=== PATIENT | male | born 1960 | race Caucasian/White ===

== ENCOUNTER 2019-08-18 20:33 | Inpatient (IN) | payer MEDICAID, OTHER ==
[~2019-08-18] VITALS: Ht 167.6 cm; Wt 75.3 kg
[2019-08-18 20:00] VITALS: BP 154/90
--- NOTE | 2019-08-18 20:59 | NUR ---
FSBS:[id number]
--- NOTE | 2019-08-18 21:00 | NUR ---
BIB FAMILY FOR C/O AMS AND HIGH BLOOD SUGAR OF 200s . PER SON HE HAD AN EPISODE OF NON- SENSE SLURRED SPEECH TODAY. PT CURRENTLY ALERT AND OX2. DOES NOT REMEMBER THE EXACT DAY OR DATE TODAY. NO FACIAL DROOP OR SLURRED SPEECH NOTED AT THIS TIME. - H/A. PT IS PLACED ON A MONITOR. WILL CONT TO [facility] AND F/W W/ 'S ORDER.
--- NOTE | 2019-08-18 21:15 | NUR ---
LEFT FOR CT
[2019-08-18 21:16] LABS: BASOPHILS % (AUTO) 0.3 % (0.0-2.0); EOSINOPHILS % (AUTO) 0.3 % (0.0-6.0); HEMATOCRIT 47 % (39-51); HEMOGLOBIN 15.9 g/dL (13.5-17.5); LYMPHOCYTES # (AUTO) 0.7 /CMM (0.8-4.8); LYMPHOCYTES % (AUTO) 9.3 % (20.0-44.0); MEAN CORPUSCULAR HGB CONC 34 g/dl (31.0-36.0); MEAN CORPUSCULAR VOLUME 88 fL (80-96); MONOCYTES # (AUTO) 0.4 /CMM (0.1-1.30); MONOCYTES % (AUTO) 4.8 % (2.0-12.0); NEUTROPHILS # (AUTO) 6.4 /CMM (1.8-8.9); NEUTROPHILS % (AUTO) 85.3 % (43.0-81.0); PLATELET COUNT (AUTO) 182 /CMM (150-450); RED BLOOD CELL COUNT(AUTO) 5.28 MIL/uL (4.5-6.0); WHITE BLOOD COUNT (AUTO) 7.5 K/uL (4.3-11.0)
[2019-08-18] MEDS ORDERED: LABETALOL HCL IV 100MG VIAL ONE (21:18)
[2019-08-18 21:30] LABS: CALCIUM, SERUM 9.5 mg/dL (8.5-10.1); CARBON DIOXIDE 28 mmol/L (21-32); CHLORIDE 100 mmol/L (98-107); GLUCOSE 228 mg/dL (74-106); POTASSIUM 3.5 mmol/L (3.5-5.1); SODIUM SERUM 135 mmol/L (136-145); UREA NITROGEN, BLOOD 14 mg/dL (7-18)
[2019-08-18] MEDS ORDERED: LABETALOL 20 MG/4 ML VIAL IV ONE (21:30)
[2019-08-18 21:36] LABS: ALANINE AMINOTRANSFERASE 57 U/L (12-78); ALBUMIN 4.1 g/dL (3.4-5.0); ALKALINE PHOSPHATASE 88 U/L (46-116); ASPARTATE AMINOTRANSFERASE 32 U/L (15-37); BILIRUBIN,DIRECT 0.2 mg/dL (0.0-0.2); TOTAL PROTEIN, SERUM 7.4 g/dL (6.4-8.2)
--- NOTE | 2019-08-18 21:47 | NUR ---
CALLED NURSING SUP FOR TELE BED
--- NOTE | 2019-08-18 21:48 | NUR ---
CALLED [facility], PAGED BASHIR
[2019-08-18] MEDS ORDERED: ASPIRIN 325 MG TABLET PO ONE (22:00)
[2019-08-18 22:08] LABS: CHOLESTEROL 253 mg/dL (<200); HDL CHOLESTEROL 55 mg/dL (40-60); LDL 186 mg/dL (0-99); TRIGLYCERIDES 170 mg/dL (30-150)
[2019-08-18] MEDS ORDERED: ASPIRIN 325 MG TABLET ONE (22:10)
--- NOTE | 2019-08-18 22:14 | NUR ---
DR CAMEJO AT THE BED SIDE
--- NOTE | 2019-08-18 22:18 | NUR ---
REPORT GIVEN TO IV.
--- NOTE | 2019-08-18 22:21 | NUR ---
PT WAS S/B HIS PCP AND WAS PRESCRIBED GEMFIMBROZIL, METFORMIN AND GLIPIZIDE TO START IN AM. DR CAMEJO MADE AWARE ABOUT THE NEW MEDS . PER MD NO NEED TO REPORT THE HOME MEDS .
[2019-08-18] MEDS ORDERED: DEXTROSE 50%-WATER 50 ML DISP.SYRIN IV PRN (23:00)
--- NOTE | 2019-08-18 23:02 | NUR ---
PT WAS TRANSFERRED TO THE THIRD FLOOR IN STABLE CONDITION, UNDER ACLS
--- NOTE | 2019-08-18 23:20 | NUR ---
RN NOTES ADMITTED PATIENT TRANSPORTED FROM ER VIA WHEELCHAIR, PATIENT ABLE TO WALK WITH ASSISTANCE FROM WHEEL CHAIR TO HIS ASSIGNED BED. ALL NEEDS ANTICIPATED, IV ACCESS INTACT AND PATENT, BRITISH SPEAKING. ATTENDED BY A BRITISH SPEAKING CT TECHNICIANCONNOR. INITIAL ASSESSMENT ADMISSION INITIATED, KEEP CLEAN WARM DRY AND COMFORTABLE. ORIENTED TO UNIT AND THE USE OF CALL LIGHT. SEEN BY DR. CAMEJO. WILL CONTINUE TO MONITOR ACCORDINGLY.
[2019-08-19] VITALS (7 sets, daily range): BP systolic 130–161; BP diastolic 88–98
[2019-08-19] MEDS: BLOOD SUGAR DIAGNOSTIC 1 EACH STRIP IN SCH ×2 (00:33→06:32)
[2019-08-19] MEDS: *INSULIN REGULAR(HUMULIN R)HUM 100 UNIT/ML VIAL SQ PRN ×2 (00:56→21:42)
[2019-08-19] MEDS: INSULIN REGULAR, HUMAN 100 UNIT/ML 3 ML VIAL SQ PRN ×3 (06:08→17:15)
[2019-08-19 06:26] LABS: BASOPHILS % (AUTO) 0.2 % (0.0-2.0); HEMATOCRIT 45 % (39-51); HEMOGLOBIN 15.6 g/dL (13.5-17.5); LYMPHOCYTES # (AUTO) 1.2 /CMM (0.8-4.8); LYMPHOCYTES % (AUTO) 19.7 % (20.0-44.0); MEAN CORPUSCULAR HGB CONC 35 g/dl (31.0-36.0); MEAN CORPUSCULAR VOLUME 87 fL (80-96); MONOCYTES # (AUTO) 0.4 /CMM (0.1-1.30); MONOCYTES % (AUTO) 6.4 % (2.0-12.0); NEUTROPHILS # (AUTO) 4.5 /CMM (1.8-8.9); NEUTROPHILS % (AUTO) 72.7 % (43.0-81.0); PLATELET COUNT (AUTO) 177 /CMM (150-450); RED BLOOD CELL COUNT(AUTO) 5.19 MIL/uL (4.5-6.0); WHITE BLOOD COUNT (AUTO) 6.1 K/uL (4.3-11.0)
--- NOTE | 2019-08-19 06:42 | NUR ---
RN NOTES ALL NEEDS ATTENDED AND MET, PATIENT REFUSED TO WEAR HOSPITAL GOWN, DENIES ANY PAIN OR DISCOMFORT AT THIS TIME, HEBREW SPEAKING, NO SLURRED SPEECH NOTED AT THIS TIME, NO NAUSEA VOMITING, SAFETY MEASURES IN PLACE, ASPIRATION PRECAUTION EMPHASIZE, KEEP CLEAN WARM DRY AND COMFORTABLY. WILL ENDORSE TO AM NURSE FOR CONTINUITY OF CARE.
[2019-08-19] MEDS ORDERED: BLOOD SUGAR DIAGNOSTIC 1 EACH STRIP IN SCH (07:30)
--- NOTE | 2019-08-19 07:30 | NUR ---
BASS MECHANISM MAKER NOTES PT IN BED, AWAKE, VERBALLY RESPONSIVE, CONFUSED, NO SIGN OF PAIN, NOT IN DISTRESS, CALL LIGHT WITHIN REACH.
[2019-08-19] MEDS ORDERED: GLIP5TAB13 PO (07:43)
[2019-08-19] MEDS ORDERED: GEMF600T5 PO (07:43)
[2019-08-19] MEDS ORDERED: METF-440 PO (07:43)
[2019-08-19 07:48] LABS: CARBON DIOXIDE 24 mmol/L (21-32); CHLORIDE 98 mmol/L (98-107); CREATININE 0.9 mg/dL (0.6-1.3); GLUCOSE 221 mg/dL (74-106); POTASSIUM 3.3 mmol/L (3.5-5.1); SODIUM SERUM 134 mmol/L (136-145); UREA NITROGEN, BLOOD 15 mg/dL (7-18)
[2019-08-19] MEDS: BLOOD SUGAR DIAGNOSTIC 1 EACH STRIP VI SCH ×4 (08:24→21:41)
[2019-08-19 08:33] LABS: CHOLESTEROL 250 mg/dL (<200); HDL CHOLESTEROL 55 mg/dL (40-60); LDL 183 mg/dL (0-99); TRIGLYCERIDES 159 mg/dL (30-150)
[2019-08-19] MEDS: ASPIRIN EC 325 MG TABLET.DR PO SCH (10:09)
[2019-08-19] MEDS ORDERED: POTASSIUM CHLORIDE 20 MEQ TAB.PRT.SR PO SCH (10:30)
--- NOTE | 2019-08-19 11:24 | NUR ---
SW Consult was requested by for stroke. ALVINO met with this 59 year old male who was admitted to the hospital on 08/18/2019 for stroke. ALVINO conducted a Post Stroke Depression scale with the pt and the pt scored a 3 which ranked him in the none to minimal risk for depression. Pt appears to be oriented x3 (time, place and self). Pt appears to be somewhat disorganized and confused. Pt was rambling in Prydeinig and when the SW stated that she does not speak Prydein[place], he gave her minimal answers in [place] Verdean and then proceeded to ramble in [place]. SW explained what happens during a stroke and what to do the next time. SW then presented the documents she had on stroke in the pts chart under the care coordination tab. SW was unable to make contact with a family member as the number on the face sheet is an inaccurate number for the pts son, Kb Myrick ([phone]) and the pt was not able to provide the accurate number. Pt will be discharged back to his home once he is stable.
--- NOTE | 2019-08-19 14:48 | NUR ---
public health educator Notes Patient was able to ambulate normally with no difficulty. Accucheck was 383 mg/dL and insulin was given. Ate lunch had no swallowing problems tolerated food well. Was able to speak on the phone with the family. Bed is in low setting with side rails up. Call light is within reach.
[2019-08-19] MEDS: METFORMIN 500 MG TABLET PO SCH (17:13)
[2019-08-19] MEDS: GEMFIBROZIL 600 MG TABLET PO SCH (17:13)
[2019-08-19] MEDS: glipiZIDE 5 MG TABLET PO SCH (17:13)
--- NOTE | 2019-08-19 18:22 | NUR ---
RN Closing Notes Patient is alert and follows commands. Accucheck was 234 mg/dL and insulin was given. Ate food and tolerated food with no difficulty. No I.V line present. Scheduled medications were given. No complain of any pain. Urine was collected for lab. Bed setting is low with side rails up call light is at reach.
--- NOTE | 2019-08-19 19:35 | NUR ---
ROUTE DRIVER OPENING NOTES RECEIVED PATIENT FROM MORNING SHIFT, ALERT AND ORIENTED X 1-2 CONFUSED. VERBALLY RESPONSIVE HUNGARIAN SPEAKING AND ABLE TO FOLLOW DIRECTIONS. BREATHING REGULAR AND UNLABORED ON ROOM AIR. ON CARDIAC MONITORING WITH SINUS TACHYCARDIA AT 108bpm. LEFT AC G18 IV LINE INTACT AND PATENT, FLUSHING WELL WITH NO BLEEDING OR S/S OF INFILTRATION NOTED. NO S/S OF PAIN/DISCOMFORT NOTED AT THIS TIME. BED LOW AND LOCKED ON SEMI FOWLERS POSITION. CALL LIGHT IN REACH. WILL CONTINUE TO MONITOR.
[2019-08-19] MEDS: ATORVASTATIN 40 MG TABLET PO SCH (21:41)
--- NOTE | 2019-08-19 22:00 | NUR ---
INSTITUTE SCIENTIST NOTES BS 243mg/dl, 4UNITS REGULAR INSULIN GIVEN SQ. SNACKS PROVIDED ON BEDSIDE. WILL CONTINUE TO MONITOR.
[2019-08-20] VITALS: BP 145/91
[2019-08-20] MEDS: BLOOD SUGAR DIAGNOSTIC 1 EACH STRIP VI SCH ×4 (06:35→22:05)
[2019-08-20] MEDS: INSULIN REGULAR, HUMAN 100 UNIT/ML 3 ML VIAL SQ PRN ×3 (06:38→16:53)
--- NOTE | 2019-08-20 06:40 | NUR ---
SLPS CLOSING NOTES PATIENT IN BED, ALERT AND ORIENTED X 1 VERY CONFUSED AND FORGETFUL. AFEBRILE WITH NO S/S OF DISTRESS OBSERVED. MAINTAINED ON CARDIAC MONITORING WITH NSR AT 78bpm. LEFT AC G18 IV LINE PATENT AND FLUSHING WELL. NO S/S OF PAIN/DISCOMFORT NOTED AT THIS TIME. BED LOW AND LOCKED ON SEMI FOWLERS POSITION. CALL LIGHT IN REACH. WILL ENDORSE TO MORNING SHIFT FOR MAX.
--- NOTE | 2019-08-20 06:50 | NUR ---
CHANNEL SPECIALIST NOTES PER THE LENDING MANAGER PATIENT HAD AN EPISODE OF BRADYCARDIA LOWEST AT 52bpm WITH PVC's. ASSESSED PATIENT AND NOTED ALERT AND ORIENTED X 1, CAN FOLLOW SIMPLE DIRECTIONS. NO S/S OF DISTRESS OR PAIN/DISCOMFORT NOTED. WILL ENDORSE TO MORNING SHIFT FOR CONTINUES MONITORING.
[2019-08-20 06:55] LABS: CALCIUM, SERUM 9.6 mg/dL (8.5-10.1); CREATININE 1.1 mg/dL (0.6-1.3); POTASSIUM 3.9 mmol/L (3.5-5.1)
--- NOTE | 2019-08-20 07:30 | NUR ---
HOUSEPERSON NOTES PT AWAKE, SITTING IN BED, ALERT AND ABLE TO ANSWER SIMPLE QUESTIONS, STILL WITH CONFUSION, NOT IN DISTRESS, NO COMPLAINT OF PAIN, SAFETY PRECAUTIONS OBSERVED, CALL LIGHT WITHIN REACH.
[2019-08-20 08:00] VITALS: BP 159/92
[2019-08-20] MEDS: glipiZIDE 5 MG TABLET PO SCH ×2 (10:42→16:37)
[2019-08-20] MEDS: ASPIRIN EC 325 MG TABLET.DR PO SCH (10:42)
[2019-08-20] MEDS: GEMFIBROZIL 600 MG TABLET PO SCH ×2 (10:42→16:37)
[2019-08-20] MEDS: METFORMIN 500 MG TABLET PO SCH ×2 (10:42→16:37)
--- NOTE | 2019-08-20 11:06 | NUR ---
RN MS NOTES DR. CERVANTES INFORMED OF PT'S MRI RESULT.
[2019-08-20 15:50] VITALS: BP 159/98
[2019-08-20] MEDS: LISINOPRIL (10MG) 10 MG TABLET PO SCH (16:38)
--- NOTE | 2019-08-20 18:25 | NUR ---
RN MS NOTES PT IN BED, RESTING, ALERT TO SELF, VERBALLY RESPONSIVE, WITH CONFUSION, NOT IN DISTRESS, DENIES PAIN, PT ABLE TO AMBULATE WITH STEADY GAIT TO THE BATHROOM, CALL LIGHT WITHIN REACH, NEEDS ATTENDED.
--- NOTE | 2019-08-20 19:37 | NUR ---
RN OPENING NOTE RECEIVED PT IN BED RESTING, PT IS PASHTO SPEAKING IS ALERT TO SELF, VERBALLY RESPONSIVE, WITH CONFUSION NOTED. PT ON RA IN NO DISTRESS. DENIES ANY PAIN AT THIS TIME. IV TO LAC PATENT AND INTACT AND FLUSHING WELL. BED LOCKED AND IN LOWEST POSITION, SIDE RAIL UP X 2, CALL LIGHT WITHIN REACH, WILL CONTINUE TO MONITOR PT.
[2019-08-20 20:00] VITALS: BP 124/81
[2019-08-20] MEDS: ATORVASTATIN 40 MG TABLET PO SCH (22:05)
[2019-08-20] MEDS: *INSULIN REGULAR(HUMULIN R)HUM 100 UNIT/ML VIAL SQ PRN (22:26)
--- NOTE | 2019-08-21 06:54 | NUR ---
RN CLOSING NOTE PT IN BED AWAKE, PT IS ALERT TO SELF, VERBALLY RESPONSIVE, WITH CONFUSION NOTED. PT ON RA IN NO DISTRESS. NO ACUTE CHANGES DURING SHIFT AND NO C/O PAIN DURING SHIFT. IV TO LAC PATENT AND INTACT AND FLUSHING WELL. PT ABLE TO AMBULATE TO THE RESTROOM WITH STEADY GAIT. BED LOCKED AND IN LOWEST POSITION, SIDE RAIL UP X 2, CALL LIGHT WITHIN REACH. ENDORSED TO AM RN FOR MAX
[2019-08-21] MEDS: BLOOD SUGAR DIAGNOSTIC 1 EACH STRIP VI SCH ×2 (07:47→11:41)
[2019-08-21] MEDS: INSULIN REGULAR, HUMAN 100 UNIT/ML 3 ML VIAL SQ PRN ×2 (07:49→11:44)
[2019-08-21 08:00] VITALS: BP 125/75
--- NOTE | 2019-08-21 08:00 | NUR ---
m/s rivet machine operator: initial assessment received pt in his room walking around, a/ox1-2; khmer speaking only. reality orientation provided prn. no c/o pain or any discomfort. instructed to call for assistance. will continue to monitor.
[2019-08-21] MEDS: GEMFIBROZIL 600 MG TABLET PO SCH (08:44)
[2019-08-21] MEDS: METFORMIN 500 MG TABLET PO SCH (08:44)
[2019-08-21] MEDS: ASPIRIN EC 325 MG TABLET.DR PO SCH (08:44)
[2019-08-21] MEDS: glipiZIDE 5 MG TABLET PO SCH (08:44)
[2019-08-21 08:45] VITALS: BP 125/75
[2019-08-21] MEDS: LISINOPRIL (10MG) 10 MG TABLET PO SCH (08:45)
--- NOTE | 2019-08-21 10:00 | NUR ---
m/s straight cutter machine: notes up and about in his room. no c/o pain or any discomfort.
--- NOTE | 2019-08-21 12:00 | NUR ---
m/s rn paralegal: md visit seen by dr. mace and plan to discharge him today. awaiting order.
--- NOTE | 2019-08-21 13:45 | NUR ---
m/s complaint evaluation officer: notes received discharge order. order acknowledged.
--- NOTE | 2019-08-21 14:20 | NUR ---
m/s subscription crew leader: notes marv (son) notified and made aware re: d'c home today with prescriptions; also informed him that he needs to follow up with pmd next week and show him all the tests that was done here. stroke packet in croatian and tristanian provided for discharge. all questions answered. also spoke to pt with tristanian staff translating re: d'c home with prescriptions and f/u.
--- NOTE | 2019-08-21 14:30 | NUR ---
m/s doll repairer: notes pt to continue home medications with prescriptions for aspirin EC 325mg po daily, lopid 600mg po bid, lipitor 40mg po qhs, lisinopril 10mg po daily, glucophage 500mg po bid, and glipizide 5mg po bid. all prescriptions went over with the pt with ghanaian staff translation. will also teach episcopal (son) about medications and side effects when he picks him up here.
--- NOTE | 2019-08-21 14:55 | NUR ---
m/s leather tanner: notes family arrived. h/l removed with tip intact.
--- NOTE | 2019-08-21 15:00 | NUR ---
m/s endless belt finisher: discharged brought pt down and spoke to restorationist (son) and other family. discharge instructions provided with prescriptions. family verbalized understanding. discharge home in stable condition accompanied by son, , and daughter.
== END 2019-08-21 15:00 | disposition home or self-care (01) | DRG 45 ==
LOC: ER 20:36 → TELE 22:07 → MED 08-20 09:38
PROVIDERS: ADMIT Internal Medicine
DX: I63.89 Other cerebral infarction (principal); G93.41 Metabolic encephalopathy; E11.65 Type 2 diabetes mellitus with hyperglycemia; E87.1 Hypo-osmolality and hyponatremia; I10 Essential (primary) hypertension; E86.1 Hypovolemia; R47.02 Dysphasia; E78.00 Pure hypercholesterolemia, unspecified; R40.2412 Glasgow coma scale score 13-15, at arrival to emergency department
CPT/HCPCS: 36415; 70450-TC; 70551-TC; 71045-TC; 80048-TC; 80061-TC; 80076-TC; 80305; 82962-TC; 84484-TC; 85025-TC; 85652-TC; 85730-TC; 87081-TC; 92611-TC; 93307-TC; 93880-TC; 97116-TC; 97530-TC; G0378; J1815; J3490